=== PATIENT | male | born 1965 | race African-American/Black ===

== ENCOUNTER 2017-02-11 14:39 | Observation (INO) | payer MEDICARE, MEDICAID ==
[2017-02-11] MEDS ORDERED: Nitroglycerin 2% Ointment 1 INCH/1 GM Packet ONE (15:24)
[2017-02-11 15:36] LABS: #Eosinphils 0.2 thou/uL (0.0-0.7); #Lymphocytes 2.7 thou/uL (1.20-3.40); #Monocytes 0.6 thou/uL (0.11-0.59); #Neutrophils 4.5 thou/uL (1.40-6.50); %Basophils 0.3 % (0.0-1.0); %Eosinophils 2.8 % (0.0-10.0); %Lymphocytes 33.7 % (21.0-51.0); %Monocytes 7.4 % (0.0-10.0); Hematocrit 47.9 % (42.0-52.0); Mean Platelet Volume 8.4 fL (7.4-10.4); Red Blood Cell (RBC) Count 5.11 mill/uL (4.70-6.10); White Blood Cell (WBC) Count 8.1 thou/uL (4.8-10.8)
[2017-02-11 15:58] LABS: ALT (SGPT) 27 U/L (8-55); AST (SGOT) 15 U/L (5-34); Alkaline Phosphatase 89 U/L (40-150); Anion Gap 16 mmol/L (10-20); BUN (Urea Nitrogen) 13 mg/dL (8.4-25.7); Bilirubin, Total 0.4 mg/dL (0.2-1.2); CK (CPK) 425 U/L (30-200); Calc. Creatinine Clearance 0 mL/min (70-130); Calcium 9.1 mg/dL (7.8-10.44); Carbon Dioxide 23 mmol/L (22-29); Chloride 103 mmol/L (98-107); Estimated GFR-MDRD Greater than 90; Globulin 3.5 g/dL (2.4-3.5); Protein, Total 7.6 g/dL (6.0-8.3)
[2017-02-11 16:03] LABS: Troponin I Less than 0.010 ng/mL (< 0.028)
--- NOTE | 2017-02-11 16:32 | ULT ---
RENAL SONOGRAM: HISTORY: Flank pain. Stones. COMPARISON: 10/31/2015. FINDINGS: The right kidney is 16.2 cm in length on today's exam. The cyst at the superior pole is again demon strated. It is predominantly exophytic, measuring up to 6.2 cm in greatest diameter. No hydronephr osis is visible. Urinary bladder is unremarkable. The left kidney is 14.7 cm in length. A tiny hyperechoic focus centrally near the inferior pole is present. No hydronephrosis is apparent. IMPRESSION: 1. Right renal cyst, stable. 2. Small non-obstructing left renal calculus. POS: [facility]
--- NOTE | 2017-02-11 16:40 | RAD ---
CHEST ONE VIEW: HISTORY: Chest pain. COMPARISON: 10/01/2012. FINDINGS: Cardiac silhouette and pulmonary vasculature are unremarkable. Mediastinum is midline. There is no confluent air space consolidation or evidence of pneumothorax. newspaper manager leads overlie the chest. IMPRESSION: No active cardiopulmonary abnormalities are demonstrated. POS: [facility]
[2017-02-11 18:55] VITALS: BMI 28.5
[2017-02-11] MEDS ORDERED: Ondansetron HCl/PF 4 MG/2 ML Vial IVP PRN ×2 (18:58→20:19)
[2017-02-11] MEDS ORDERED: Acetaminophen 325 MG TAB PO PRN (18:58)
[2017-02-11] MEDS ORDERED: Ondansetron ODT 4 MG TAB SL PRN (18:58)
[2017-02-11 19:56] LABS: Troponin I Less than 0.010 ng/mL (< 0.028)
[2017-02-11] MEDS ORDERED: Dextrose 50% Abboject 50 ML SYRINGE SLOW IVP PRN (20:19)
[2017-02-11] MEDS ORDERED: Nitroglycerin 0.4 MG TAB (25 Tab Bottle) PO PRN (20:19)
[2017-02-11] MEDS ORDERED: Ondansetron ODT 4 MG TAB PO PRN (20:19)
[2017-02-11] MEDS ORDERED: hydrALAZINE 20 MG/ML VIAL SLOW IVP PRN (20:19)
[2017-02-11] MEDS ORDERED: Mag-Al 1200 mg/1200 mg/30 ML UDCUP PO PRN (20:19)
[2017-02-11] MEDS ORDERED: Dextrose 5% in Water 1,000 ML IV PRN (20:19)
[2017-02-11] MEDS ORDERED: Mometasone/Formoterol 120 PUFF INHALER INH PRN (20:19)
[2017-02-11] MEDS ORDERED: Zolpidem Tartrate 5 MG TAB PO PRN (20:19)
[2017-02-11] MEDS: Nitroglycerin 2% Ointment 1 INCH/1 GM Packet TOP SCH (21:07)
[2017-02-11] MEDS: Docusate 100 MG CAP PO SCH (21:07)
[2017-02-11] MEDS: HumaLOG 300 UNITS/3 ML VIAL SC PRN (21:10)
[2017-02-11] MEDS: Acetaminophen 325 MG TAB PO PRN (21:10)
[2017-02-11 21:25] LABS: Troponin I Less than 0.010 ng/mL (< 0.028)
--- NOTE | 2017-02-12 00:31 | HP ---
PRIMARY CARE PHYSICIAN: Dr. Manriquez. CHIEF COMPLAINT: Chest pain. HISTORY OF PRESENT ILLNESS: Mr. Stephen is a pleasant 51-year-old gentleman that has a history of hyp ertension as well as coronary artery disease. He was in his usual state of health until the last co uple of days when he says he has been having some sharp, but also heavy pains in his chest. He says they were relatively minor. He had noticed one time when he was driving and another time when he w as cooking, but what concerned him is that earlier today, he says that he woke up sweating \\\\"really bad\\\\" and he says also he could hardly breathe and this happened after he got up and took a shower . He says that some of his symptoms were reminiscent of when he had his first stent placed and for this reason, he got concerned. He also says that he missed his last cardiology appointment as well and the last time he saw Dr. Manriquez was about 3 months ago. He says he did have a cardiac cathete rization about 2 years ago. He says that there was a small blockage there that was not amenable to stenting and would have to be treated medically. REVIEW OF SYSTEMS: Constitutional: There have been no fevers, chills, no night sweats, no weight l oss. HEENT: No headaches, no dizziness, no visual changes, no sore throat, no rhinorrhea, neck yunier n, no adenopathy. Pulmonary: No hemoptysis, no cough, no wheezing. Cardiovascular: As the history of present illness with no PND, no orthopnea. No lower extremity ed leopoldo. Gastrointestinal: He denies any abdominal pain, no nausea, no vomiting, no change in bowels. Genitourinary: No urinary frequency, hematuria, no hesitancy. Neurologic: No focal weakness, num bness, no seizures. Psychiatric: No symptoms of anxiety or depression. Skin and Integument: No skin changes. No rash. PAST MEDICAL HISTORY: Significant for coronary artery disease, obstructive sleep apnea, hypertensio n, and elevated cholesterol. PAST SURGICAL HISTORY: He has had lumbar disk surgery, rotator cuff repair and right knee surgery, history of kidney stone surgery and 7 stents. ALLERGIES: No known drug allergies. FAMILY HISTORY: He says his brother suddenly in his 40s. He said he has several siblings, two brothers and a sister of heart disease. SOCIAL HISTORY: He is single. He is a smoker. He smokes about 1 pack of cigarettes a week for the past 30 years. He drinks socially. MEDICATIONS: He was not sure of the names and dosages. He says that they are what was recorded in the ER and this of course will need to be reconciled which included metformin 500 mg twice daily, as pirin 81 mg daily, hydrochlorothiazide 25 mg daily, Plavix 75 mg daily, Lantus Solostar 60 units crispin ly, Ambien 10 mg daily, Soma 350 mg daily. PHYSICAL EXAMINATION: GENERAL: He is alert and oriented. He appears to be in no acute distress. In fact, he was out of the room when I initially came to visit him. VITAL SIGNS: Blood pressure was 145/87, heart rate 68, respiratory rate is 16, temperature is 97.3. HEENT: Pupils are equal, round, and reactive. Extraocular muscles are intact. Sclerae are anicter ic. Throat no erythema, no exudates. NECK: No adenopathy, no bruits. LUNGS: Clear to auscultation. CARDIOVASCULAR: He has a normal S1, S2. I do not appreciate an S3 or S4. No murmurs, clicks or ru bs. ABDOMEN: Soft, nontender, nondistended. No rebound, no guarding. EXTREMITIES: No clubbing or cyanosis, no edema. NEUROLOGICALLY: The exam is nonfocal. SIGNIFICANT LABORATORY DATA AND IMAGING: EKG was sinus rhythm, the rate is 84. He had some T-wave inversion in V3 and some poor R-wave progression in V1 through V2. Sodium was 138, potassium 3.6, c hloride is 103, CO2 is 23, BUN of 13, creatinine 1.03, glucose is 304, creatinine kinase is 425. Tr oponin is less than 0.010. White blood cell count 8.1, hemoglobin 15.7, hematocrit is 47.9, platele ts 186. ASSESSMENT AND PLAN: This is a pleasant 51-year-old gentleman who is being placed in observation du e to chest pain. He has a history of coronary artery disease and continues to smoke and has other r isk factors including hypertension and diabetes. He also says that his symptoms are similar to when he had his stent placed. He will be ruled out, and we will get an exercise Cardiolite to further a ssess his risk for acute coronary syndrome. We will continue his medications for diabetes with the exception of metformin and place him on a sliding scale. He will also be on aspirin and nitrates an d restart his medications for blood pressure.
[2017-02-12 00:48] LABS: Troponin I Less than 0.010 ng/mL (< 0.028)
[2017-02-12] MEDS: Nitroglycerin 2% Ointment 1 INCH/1 GM Packet TOP SCH ×2 (05:02→13:55)
[2017-02-12] MEDS ORDERED: Regadenoson 0.4 MG/5 ML SYRINGE ONE (08:59)
[2017-02-12] MEDS ORDERED: Aspirin 325 MG TAB PO SCH (09:00)
[2017-02-12] MEDS ORDERED: FLU VACC QS2017-18 36 mo. & older 0.5 ML SYRINGE IM ONE (09:00)
[2017-02-12] MEDS ORDERED: Enoxaparin Sodium 40 MG/0.4 ML SYRINGE SC SCH (09:00)
[2017-02-12 12:04] VITALS: BP 156/92; TEMP 97.5
[2017-02-12] MEDS: HumaLOG 300 UNITS/3 ML VIAL SC PRN (12:29)
[2017-02-12] MEDS: Docusate 100 MG CAP PO SCH (13:14)
[2017-02-12] MEDS: Acetaminophen 325 MG TAB PO PRN (13:50)
--- NOTE | 2017-02-12 15:25 | NM ---
RADIONUCLIDE STRESS/REST MYOCARDIAL PERFUSION SCAN WITH CT ATTENUATION CORRECTION AND SPECT IMAGING WITH LEFT VENTRICULAR WALL MOTION EVALUATION AND EJECTION FRACTION: HISTORY: Chest pain. FINDINGS: Lexiscan protocol was used. There is heterogeneous uptake of radiotracer throughout the left ventric ular myocardium on both the stress and rest images. No focal perfusion defect or reversibility are a pparent. QGS analysis of gated SPECT images shows no focal wall motion abnormalities. Left ventricular ejecti on fraction is calculated at 58%. IMPRESSION: 1. Normal myocardial perfusion scan. 2. Normal LVEF. POS: [facility]
--- NOTE | 2017-02-12 16:33 | DIS ---
DATE OF ADMISSION: 02/11/2017 DATE OF DISCHARGE: 02/12/2017 PRIMARY CARE PHYSICIAN: CHIRAG Meyer DISCHARGE DISPOSITION: Home. PRIMARY DISCHARGE DIAGNOSES: 1. Chest pain, probable noncardiac. 2. History of coronary artery disease, status post multiple stent placements. 3. Hypertension. 4. Diabetes mellitus. 5. Nephrolithiasis. 6. Insomnia. DISCHARGE MEDICATIONS: Include tramadol 50 mg 1-2 every 6 hours as needed, metformin 500 mg twice d aily, Ambien 5 mg p.o. at bedtime p.r.n. or he can take zaleplon 10 mg at nighttime for sleep, Lantu s insulin 60 units twice daily, ibuprofen 800 mg q.6, hydrochlorothiazide 12.5 mg daily, Plavix 75 m g daily, Soma 350 mg q.i.d. as needed, Symbicort 160/4.5 one puff daily as directed, and aspirin 81 mg. PROCEDURES DONE DURING ADMISSION: The patient had a renal ultrasound. This showed a right renal cy st which was stable and a small nonobstructing of left renal calculus. The patient also had a nucle ar stress test or an exercise Cardiolite. There was no evidence of any reversible ischemia. The pa tiefaustino had a normal ejection fraction and no evidence of any wall motion disease or dysfunction and t he ejection fraction was estimated at 58%. CODE STATUS: FULL CODE. HOSPITAL COURSE: Mr. Stephen is a pleasant 51-year-old gentleman who was admitted after experiencing some chest pain. The description of which was somewhat atypical, but the patient stated that was ve ry similar to what he had when he had a history of coronary artery disease. He was placed in observ ation, he ruled out and stress test negative. He is being therefore discharged home to have early f [facility] with his primary care physician as well as his senior support engineer. He is to continue the same med ications and the patient is also on a statin medication, one of the new injected medicines which Makenzie taylor is Trapeze.
--- NOTE | 2017-02-17 10:10 | STRESS ---
Acquisition Time: 2017-02-12 10:15:08 Total Exercise Time: 00:01:00 Test Indications: CHEST PAIN Medications: Protocol: LEXISCAN Max HR: 109 BPM 64% of Pred: 169 BPM Max BP: 184/080 mmHG Max Work Load: 1.0 METS THE PATIENT WAS INJECTED WITH LEXISCAN. HE DID NOT DEVELOP CHEST PAIN. THERE WAS NO SIGNIFICANT ST DEPRESSION. AWAIT NUCLEAR IMAGES FOR DEFINITIVE DIAGNOSIS. Confirmed by JOSE LUIS SONG ([id number]), marketing editor KALEY QUINN ([id number] on 02/17/2017 10:10:05 AM Referred By: MD Matt ASHBY Confirmed By:JOSE LUIS SONG
--- NOTE | 2017-02-20 16:42 | EKG ---
Test Reason : Blood Pressure : / mmHG Vent. Rate : 084 BPM Atrial Rate : 084 BPM P-R Int : 170 ms QRS Dur : 096 ms QT Int : 372 ms P-R-T Axes : 061 045 011 degrees QTc Int : 439 ms Normal sinus rhythm Minimal voltage criteria for LVH, may be normal variant Septal infarct , age undetermined No STEMI Abnormal ECG Confirmed by CHRISTOS SHEN, FATUMA ([id number]), avid editor BASIM RAMIREZ ([id number]) on 02/20/2017 4:41:59 PM Referred By: Confirmed By:FATUMA SHER MD
== END 2017-02-12 15:58 | disposition home or self-care (01) ==
LOC: ERS 14:39 → 2SW 17:29
PROVIDERS: ADMIT Internal Medicine; ATTEND Internal Medicine
DX: R07.9 Chest pain, unspecified (principal); I25.10 Atherosclerotic heart disease of native coronary artery without angina pectoris; I10 Essential (primary) hypertension; E11.9 Type 2 diabetes mellitus without complications; N20.0 Calculus of kidney; G47.00 Insomnia, unspecified; N28.1 Cyst of kidney, acquired; G47.33 Obstructive sleep apnea (adult) (pediatric); E78.00 Pure hypercholesterolemia, unspecified; F17.210 Nicotine dependence, cigarettes, uncomplicated; Z79.4 Long term (current) use of insulin; Z79.02 Long term (current) use of antithrombotics/antiplatelets; Z79.82 Long term (current) use of aspirin; Z79.899 Other long term (current) drug therapy; Z98.890 Other specified postprocedural states; Z87.442 Personal history of urinary calculi
CPT/HCPCS: 71010; 76770; 78452; 80053; 80061; 82550; 82553; 82962 ×2; 84484 ×3; 85025; 93005; 93017; 94760 ×2; 96372; 99285; 99406; A9500; G0008; G0378; Q2036; 36415; 36416; 90471; 90682; A4216; J1650; J2785

== ENCOUNTER 2017-04-12 12:35 | Emergency (ER) | payer MEDICARE, MEDICAID ==
[2017-04-12] MEDS ORDERED: Ketorolac Tromethamine 30 MG/ML VIAL ONE (14:04)
== END 2017-04-12 14:25 | disposition home or self-care (01) ==
LOC: ERS 12:35
DX: S33.5XXA Sprain of ligaments of lumbar spine, initial encounter (principal); I25.10 Atherosclerotic heart disease of native coronary artery without angina pectoris; E11.9 Type 2 diabetes mellitus without complications; E78.5 Hyperlipidemia, unspecified; I10 Essential (primary) hypertension; F17.210 Nicotine dependence, cigarettes, uncomplicated; Z79.82 Long term (current) use of aspirin; Z79.02 Long term (current) use of antithrombotics/antiplatelets; Z79.899 Other long term (current) drug therapy; Z79.4 Long term (current) use of insulin; X50.0XXA Overexertion from strenuous movement or load, initial encounter; Y99.0 Civilian activity done for income or pay
CPT/HCPCS: 96372; 99406; J1885

== ENCOUNTER 2018-04-23 09:42 | Emergency (ER) | payer MEDICARE, MEDICAID | END 2018-04-23 10:28 | disposition home or self-care (01) | LOC: ERS 09:42 | DX: K03.81 Cracked tooth (principal); K04.7 Periapical abscess without sinus; I25.10 Atherosclerotic heart disease of native coronary artery without angina pectoris; E11.9 Type 2 diabetes mellitus without complications; E78.5 Hyperlipidemia, unspecified; F17.210 Nicotine dependence, cigarettes, uncomplicated; Z79.82 Long term (current) use of aspirin; Z79.899 Other long term (current) drug therapy; Z79.4 Long term (current) use of insulin | CPT/HCPCS: 99282 ==

== ENCOUNTER 2018-07-13 09:27 | Emergency (ER) | payer MEDICARE, MEDICAID | END 2018-07-13 10:49 | disposition home or self-care (01) | LOC: ERS 09:27 | DX: J06.9 Acute upper respiratory infection, unspecified (principal); I25.10 Atherosclerotic heart disease of native coronary artery without angina pectoris; E11.9 Type 2 diabetes mellitus without complications; E78.5 Hyperlipidemia, unspecified; F17.210 Nicotine dependence, cigarettes, uncomplicated; Z79.82 Long term (current) use of aspirin; Z79.84 Long term (current) use of oral hypoglycemic drugs; Z79.899 Other long term (current) drug therapy | CPT/HCPCS: 99283 ==

== ENCOUNTER 2019-06-11 05:28 | Emergency (ER) | payer MEDICARE, MEDICAID ==
[2019-06-11] MEDS ORDERED: Metoclopramide HCl 10 MG/2 ML VIAL ONE (06:28)
[2019-06-11] MEDS ORDERED: Ketorolac Tromethamine 30 MG/ML VIAL ONE (06:28)
[2019-06-11] MEDS ORDERED: diphenhydrAMINE 50 MG/ML VIAL ONE (06:28)
[2019-06-11 06:32] LABS: #Eosinphils 0.3 thou/uL (0.0-0.7); #Lymphocytes 2.8 thou/uL (1.20-3.40); #Monocytes 0.9 thou/uL (0.11-0.59); #Neutrophils 5.3 thou/uL (1.40-6.50); %Basophils 0.4 % (0.0-1.0); %Lymphocytes 29.9 % (21.0-51.0); %Monocytes 9.3 % (0.0-10.0); %Neutrophils 57.4 % (42.0-75.0); Hemoglobin 15.9 g/dL (14.0-18.0); Mean Corpuscular HGB CONC 34.7 g/dL (32.0-36.0); Mean Corpuscular Hemoglobin 32.1 pg (27.0-31.0); Mean Corpuscular Volume 92.7 fL (78.0-98.0); Platelet Count 197 thou/uL (130-400); Red Blood Cell (RBC) Count 4.94 mill/uL (4.70-6.10); White Blood Cell (WBC) Count 9.3 thou/uL (4.8-10.8)
== END 2019-06-11 07:29 | disposition home or self-care (01) ==
LOC: ERS 05:28
DX: R51 Headache (principal); F17.210 Nicotine dependence, cigarettes, uncomplicated; E78.5 Hyperlipidemia, unspecified; I25.10 Atherosclerotic heart disease of native coronary artery without angina pectoris; E78.00 Pure hypercholesterolemia, unspecified; I10 Essential (primary) hypertension; E11.9 Type 2 diabetes mellitus without complications; Z79.4 Long term (current) use of insulin; Z79.82 Long term (current) use of aspirin; Z79.899 Other long term (current) drug therapy
CPT/HCPCS: 85025; 85652; 86140; 96365; 96375; J1200; J1885; J2765

== ENCOUNTER 2019-09-12 06:28 | Outpatient (CLI) | payer MEDICARE, MEDICAID, OTHER ==
[2019-09-12 10:48] LABS: #Eosinphils 0.3 thou/uL (0.0-0.7); #Lymphocytes 2.8 thou/uL (1.20-3.40); #Monocytes 0.9 thou/uL (0.11-0.59); #Neutrophils 4.7 thou/uL (1.40-6.50); %Basophils 0.4 % (0.0-1.0); %Eosinophils 3.3 % (0.0-10.0); %Lymphocytes 32.6 % (21.0-51.0); %Neutrophils 53.6 % (42.0-75.0); Mean Corpuscular HGB CONC 34.5 g/dL (32.0-36.0); Mean Corpuscular Hemoglobin 32.3 pg (27.0-31.0); Mean Corpuscular Volume 93.8 fL (78.0-98.0); Mean Platelet Volume 9.2 fL (7.4-10.4); Platelet Count 177 thou/uL (130-400); Red Blood Cell (RBC) Count 4.93 mill/uL (4.70-6.10); White Blood Cell (WBC) Count 8.7 thou/uL (4.8-10.8)
[2019-09-12 11:14] LABS: ALT (SGPT) 34 U/L (8-55); AST (SGOT) 19 U/L (5-34); Albumin 4.2 g/dL (3.5-5.0); Alkaline Phosphatase 81 U/L (40-110); Anion Gap 12 mmol/L (10-20); BUN (Urea Nitrogen) 16 mg/dL (8.4-25.7); Bilirubin, Total 0.5 mg/dL (0.2-1.2); Calc. Creatinine Clearance 0 mL/min (70-130); Calcium 9.2 mg/dL (7.8-10.44); Carbon Dioxide 24 mmol/L (22-29); Chloride 104 mmol/L (98-107); Estimated GFR-MDRD Greater than 90; Globulin 3.2 g/dL (2.4-3.5); Glucose 268 mg/dL (70-105); Potassium 3.9 mmol/L (3.5-5.1); Protein, Total 7.4 g/dL (6.0-8.3); Sodium 136 mmol/L (136-145)
[2019-09-12 18:40] LABS: SARS-CoV-2 MS2 Positive; SARS-CoV-2 N Gene Negative; SARS-CoV-2 S Gene Negative; SARS-CoV-2 orf1ab Negative
== END 2019-09-12 06:29 | disposition home or self-care (01) ==
LOC: LABBT 06:28
PROVIDERS: ATTEND Internal Medicine Cardiovascular Disease
DX: Z01.812 Encounter for preprocedural laboratory examination (principal); Z11.59 Encounter for screening for other viral diseases; I20.9 Angina pectoris, unspecified
CPT/HCPCS: 80053; 85025; U0003; 87635

== ENCOUNTER 2019-09-15 06:20 | Day surgery (SDC) | payer MEDICARE, MEDICAID ==
[2019-09-12 08:26] VITALS: BMI 29.8
[2019-09-15] MEDS ORDERED: Fentanyl 100 MCG/2 ML VIAL ONE (08:33)
[2019-09-15] MEDS ORDERED: Midazolam HCl 2 mg/2 ml Vial ONE (08:33)
[2019-09-15] MEDS ORDERED: Heparin 10,000 UNITS/1 ML VIAL ONE (08:50)
[2019-09-15] MEDS ORDERED: Clopidogrel Bisulfate 300 MG TAB ONE (09:05)
[2019-09-15] MEDS ORDERED: Nitroglycerin 100MG/250ML BOT 250 ML ONE (09:05)
[2019-09-15] MEDS ORDERED: Iopamidol 370 76% 50 ML VIAL FS ONE (09:56)
[2019-09-15] MEDS ORDERED: Iopamidol 370 76% 100 ML VIAL ONE (09:56)
[2019-09-15] MEDS ORDERED: Acetaminophen/Codeine 30-300mg Tablet ONE (11:43)
== END 2019-09-15 15:55 | disposition home or self-care (01) ==
LOC: CCL 06:20
PROVIDERS: ATTEND Internal Medicine Cardiovascular Disease
PROC: 027136Z Dilation of Coronary Artery, Two Arteries with Three Drug-eluting Intraluminal Devices, Percutaneous Approach (ICD-10-PCS; principal; 2019-09-15)
PROC: 4A023N7 Measurement of Cardiac Sampling and Pressure, Left Heart, Percutaneous Approach (ICD-10-PCS; 2019-09-15)
PROC: B2111ZZ Fluoroscopy of Multiple Coronary Arteries using Low Osmolar Contrast (ICD-10-PCS; 2019-09-15)
DX: I25.119 Atherosclerotic heart disease of native coronary artery with unspecified angina pectoris (principal); E11.9 Type 2 diabetes mellitus without complications; E78.2 Mixed hyperlipidemia; F17.210 Nicotine dependence, cigarettes, uncomplicated; I10 Essential (primary) hypertension; E78.00 Pure hypercholesterolemia, unspecified; E66.9 Obesity, unspecified; Z68.29 Body mass index [BMI] 29.0-29.9, adult; Z79.02 Long term (current) use of antithrombotics/antiplatelets; Z79.4 Long term (current) use of insulin; Z79.82 Long term (current) use of aspirin; Z79.899 Other long term (current) drug therapy; Z91.19 Patient's noncompliance with other medical treatment and regimen
CPT/HCPCS: 85347; 92928; 92929; 93005; 93010; 93454; 99152; 99153; C1874; C9600; C9601; J1644; J2250; J3010; Q9967

== ENCOUNTER 2021-04-10 17:04 | Emergency (ER) | payer MEDICARE ==
[2021-04-10 18:04] LABS: #Basophils 0.1 thou/uL (0.0-0.2); #Eosinphils 0.3 thou/uL (0.0-0.7); #Lymphocytes 3.9 thou/uL (1.20-3.40); #Monocytes 0.7 thou/uL (0.11-0.59); #Neutrophils 5.7 thou/uL (1.40-6.50); %Basophils 0.7 % (0.0-1.0); %Eosinophils 3.1 % (0.0-10.0); %Lymphocytes 36.6 % (21.0-51.0); %Monocytes 6.2 % (0.0-10.0); %Neutrophils 53.4 % (42.0-75.0); Hemoglobin 15.2 g/dL (14.0-18.0); Mean Corpuscular HGB CONC 35.1 g/dL (32.0-36.0); Mean Corpuscular Hemoglobin 32.3 pg (27.0-31.0); Mean Corpuscular Volume 91.9 fL (78.0-98.0); Mean Platelet Volume 7.8 fL (7.4-10.4); Platelet Count 249 thou/uL (130-400); RBC Distribution Width 11.3 % (11.5-14.5); Red Blood Cell (RBC) Count 4.69 mill/uL (4.70-6.10); White Blood Cell (WBC) Count 10.7 thou/uL (4.8-10.8)
[2021-04-10 18:20] LABS: Bilirubin Negative (Negative); Blood, Urine Negative (Negative); Clarity Clear (Clear); Glucose, Urine (Dipstick) Greater than 1000 mg/dL (Negative); Ketone, Urine Negative (Negative); Leukocyte Negative Leu/uL (Negative); Nitrite Negative (Negative); Protein, Urine (Dipstick) 20 mg/dL (Neg-Trace); Specific Gravity, Urine 1.032 (1.002-1.036); Urobilinogen Normal mg/dL (Less than 2); pH, Urine 6.5 (5.0-9.0)
[2021-04-10 18:23] LABS: ALT (SGPT) 24 U/L (8-55); AST (SGOT) 16 U/L (5-34); Albumin 4.2 g/dL (3.5-5.0); Alkaline Phosphatase 83 U/L (40-110); Anion Gap 13 mmol/L (10-20); BUN (Urea Nitrogen) 15 mg/dL (8.4-25.7); Bilirubin, Total 0.4 mg/dL (0.2-1.2); Calc. Creatinine Clearance 0 mL/min (70-130); Calcium 9.7 mg/dL (7.8-10.44); Carbon Dioxide 25 mmol/L (22-29); Chloride 100 mmol/L (98-107); Globulin 3.7 g/dL (2.4-3.5); Glucose 268 mg/dL (70-105); Potassium 3.8 mmol/L (3.5-5.1); Protein, Total 7.9 g/dL (6.0-8.3); Sodium 134 mmol/L (136-145)
[2021-04-10] MEDS ORDERED: Morphine 4 MG/ML VIAL ONE (18:55)
[2021-04-10] MEDS ORDERED: Ondansetron PF 4 MG/2 ML Vial ONE (18:56)
[2021-04-10] MEDS ORDERED: Ketorolac Tromethamine 30 MG/ML VIAL ONE (18:56)
[2021-04-10] MEDS ORDERED: HYDROcodone/Acetaminophen 5/325 mg Tablet ONE (20:04)
== END 2021-04-10 20:18 | disposition home or self-care (01) ==
LOC: ERS 17:04
DX: R10.31 Right lower quadrant pain (principal); I25.10 Atherosclerotic heart disease of native coronary artery without angina pectoris; E11.9 Type 2 diabetes mellitus without complications; E78.5 Hyperlipidemia, unspecified; E78.00 Pure hypercholesterolemia, unspecified; I10 Essential (primary) hypertension; F17.210 Nicotine dependence, cigarettes, uncomplicated; Z79.82 Long term (current) use of aspirin; Z79.02 Long term (current) use of antithrombotics/antiplatelets; Z79.899 Other long term (current) drug therapy
CPT/HCPCS: 74176; 80053; 81003; 83690; 85025; 87086; 96374; 96375; J1885; J2270; J2405

== ENCOUNTER 2021-04-12 20:17 | Emergency (ER) | payer MEDICARE ==
[2021-04-12 21:46] LABS: #Lymphocytes 2.6 thou/uL (1.20-3.40); #Monocytes 0.9 thou/uL (0.11-0.59); #Neutrophils 12.4 thou/uL (1.40-6.50); %Basophils 0.1 % (0.0-1.0); %Eosinophils 0.2 % (0.0-10.0); %Lymphocytes 16.2 % (21.0-51.0); %Monocytes 5.4 % (0.0-10.0); %Neutrophils 78.1 % (42.0-75.0); Hemoglobin 15.7 g/dL (14.0-18.0); Mean Corpuscular HGB CONC 35.6 g/dL (32.0-36.0); Mean Corpuscular Hemoglobin 32.6 pg (27.0-31.0); Mean Corpuscular Volume 91.6 fL (78.0-98.0); Platelet Count 279 thou/uL (130-400); RBC Distribution Width 11.5 % (11.5-14.5); Red Blood Cell (RBC) Count 4.83 mill/uL (4.70-6.10); White Blood Cell (WBC) Count 15.8 thou/uL (4.8-10.8)
[2021-04-12 22:09] LABS: ALT (SGPT) 23 U/L (8-55); AST (SGOT) 15 U/L (5-34); Albumin 4.3 g/dL (3.5-5.0); Alkaline Phosphatase 84 U/L (40-110); Anion Gap 15 mmol/L (10-20); BUN (Urea Nitrogen) 21 mg/dL (8.4-25.7); Bilirubin, Total 0.5 mg/dL (0.2-1.2); Calc. Creatinine Clearance 0 mL/min (70-130); Calcium 10.1 mg/dL (7.8-10.44); Carbon Dioxide 20 mmol/L (22-29); Chloride 101 mmol/L (98-107); Globulin 3.7 g/dL (2.4-3.5); Glucose 329 mg/dL (70-105); Potassium 4.1 mmol/L (3.5-5.1); Sodium 132 mmol/L (136-145)
[2021-04-12] MEDS ORDERED: Morphine 4 MG/ML VIAL ONE (22:56)
[2021-04-12] MEDS ORDERED: Ketorolac Tromethamine 30 MG/ML VIAL ONE (22:56)
[2021-04-12 23:48] LABS: Bilirubin Negative (Negative); Blood, Urine Negative (Negative); Clarity Clear (Clear); Glucose, Urine (Dipstick) Greater than 1000 mg/dL (Negative); Ketone, Urine 40 mg/dL (Negative); Leukocyte Negative Leu/uL (Negative); Nitrite Negative (Negative); Protein, Urine (Dipstick) 20 mg/dL (Neg-Trace); Specific Gravity, Urine 1.039 (1.002-1.036); pH, Urine 6.5 (5.0-9.0)
== END 2021-04-12 23:33 | disposition home or self-care (01) ==
LOC: ERS 20:17
DX: M54.41 Lumbago with sciatica, right side (principal); E11.65 Type 2 diabetes mellitus with hyperglycemia; I10 Essential (primary) hypertension; I25.10 Atherosclerotic heart disease of native coronary artery without angina pectoris; E78.5 Hyperlipidemia, unspecified; E78.00 Pure hypercholesterolemia, unspecified; F17.210 Nicotine dependence, cigarettes, uncomplicated; Z79.02 Long term (current) use of antithrombotics/antiplatelets; Z79.82 Long term (current) use of aspirin; Z79.4 Long term (current) use of insulin; Z79.899 Other long term (current) drug therapy
CPT/HCPCS: 36415; 80053; 81003; 85025; 85652; 86141; 96372; J1885; J2270

== ENCOUNTER 2021-04-14 04:43 | Emergency (ER) | payer MEDICARE ==
[2021-04-14] MEDS ORDERED: Ketorolac Tromethamine 30 MG/ML VIAL ONE (05:57)
== END 2021-04-14 06:32 | disposition home or self-care (01) ==
LOC: ERS 04:43
DX: M54.41 Lumbago with sciatica, right side (principal); I10 Essential (primary) hypertension; I25.10 Atherosclerotic heart disease of native coronary artery without angina pectoris; E11.9 Type 2 diabetes mellitus without complications; E78.5 Hyperlipidemia, unspecified; E78.00 Pure hypercholesterolemia, unspecified; F17.210 Nicotine dependence, cigarettes, uncomplicated
CPT/HCPCS: 96372; 99283; J1885

== ENCOUNTER 2022-03-31 08:20 | Emergency (ER) | payer OTHER ==
[2022-03-31] MEDS ORDERED: Ketorolac Tromethamine 30 MG/ML VIAL ONE (08:45)
[2022-03-31] MEDS ORDERED: Dexamethasone 10 MG/ML VIAL ONE (08:45)
[2022-03-31] MEDS ORDERED: Fentanyl 100 MCG/2 ML VIAL ONE (08:45)
== END 2022-03-31 09:22 | disposition home or self-care (01) ==
LOC: ERS 08:20
DX: M19.90 Unspecified osteoarthritis, unspecified site (principal); I25.10 Atherosclerotic heart disease of native coronary artery without angina pectoris; E11.9 Type 2 diabetes mellitus without complications; E78.00 Pure hypercholesterolemia, unspecified; I10 Essential (primary) hypertension; F17.210 Nicotine dependence, cigarettes, uncomplicated; Z79.899 Other long term (current) drug therapy; Z79.82 Long term (current) use of aspirin
CPT/HCPCS: 96372; 99283; J1100; J1885; J3010

== ENCOUNTER 2022-05-02 07:40 | Emergency (ER) | payer OTHER ==
[2022-05-02] MEDS ORDERED: Acetaminophen/Codeine 30-300mg Tablet ONE (09:59)
[2022-05-02] MEDS ORDERED: Ketorolac Tromethamine 30 MG/ML VIAL ONE (09:59)
== END 2022-05-02 11:28 | disposition home or self-care (01) ==
LOC: ERS 07:40
DX: M25.511 Pain in right shoulder (principal); E11.9 Type 2 diabetes mellitus without complications; E78.00 Pure hypercholesterolemia, unspecified; I10 Essential (primary) hypertension; F17.210 Nicotine dependence, cigarettes, uncomplicated; Z79.82 Long term (current) use of aspirin; Z79.4 Long term (current) use of insulin
CPT/HCPCS: 96372; J1885

== ENCOUNTER 2022-05-23 12:51 | Inpatient (IN) | payer OTHER, MEDICAID ==
[2022-05-23] MEDS ORDERED: Morphine 4 MG/ML VIAL ONE (13:17)
[2022-05-23] MEDS ORDERED: Acetaminophen 500 MG TAB ONE (13:18)
[2022-05-23 14:02] LABS: Hemoglobin 12.6 g/dL (14.0-18.0); Mean Corpuscular HGB CONC 34.6 g/dL (32.0-36.0); Mean Corpuscular Hemoglobin 31.2 pg (27.0-31.0); Mean Corpuscular Volume 90.3 fl (78.0-98.0); Mean Platelet Volume 6.7 fL (7.4-10.4); Platelet Count 684 10x3/uL (130-400); RBC Distribution Width 11.9 % (11.5-14.5); Red Blood Cell (RBC) Count 4.03 mill/uL (4.70-6.10); White Blood Cell (WBC) Count 20.5 10x3/uL (4.8-10.8)
[2022-05-23 14:07] LABS: ALT (SGPT) 7 U/L (8-55); AST (SGOT) 9 U/L (5-34); Albumin 3.7 g/dL (3.5-5.0); Alkaline Phosphatase 86 U/L (40-110); Anion Gap 17 mmol/L (10-20); BUN (Urea Nitrogen) 10 mg/dL (8.4-25.7); Bilirubin, Total 0.7 mg/dL (0.2-1.2); Calc. Creatinine Clearance 0 mL/min (70-130); Calcium 10.1 mg/dL (7.8-10.44); Carbon Dioxide 22 mmol/L (22-29); Chloride 98 mmol/L (98-107); Estimated GFR 101; Globulin 5.5 g/dL (2.4-3.5); Glucose 246 mg/dL (70-105); Potassium 3.7 mmol/L (3.5-5.1); Protein, Total 9.2 g/dL (6.0-8.3); Sodium 133 mmol/L (136-145)
[2022-05-23 14:21] LABS: Lymphocytes 19 % (21-51); MDiff Complete? YES; Monocytes 10 % (0-10); Neutrophil 70 % (42-75); Platelet Morphology Comment Appears Increased; Polychromasia SLIGHT = 2-3 cells (100X) (0-2/hpf); Reactive Lymphocytes 1 % (0-10)
[2022-05-23] MEDS ORDERED: cefTRIAXone\\ROCEPHIN 2 GM VIAL ONE (14:26)
[2022-05-23] MEDS ORDERED: Ondansetron ODT 4 MG TAB PO PRN (15:41)
[2022-05-23] MEDS ORDERED: Acetaminophen 325 MG TAB PO PRN ×2 (15:41→19:14)
[2022-05-23 17:43] VITALS: BMI 25.0
[2022-05-23] MEDS ORDERED: Dextrose 5% in Water 1,000 ML IV PRN (18:16)
[2022-05-23] MEDS ORDERED: Dextrose 50% Abboject 50 ML SYRINGE SLOW IVP PRN (18:16)
[2022-05-23] MEDS ORDERED: Sodium Chloride 0.9% 1,000 ML IV SCH (18:30)
[2022-05-23] MEDS: HYDROcodone/Acetaminophen 10/325 mg Tablet PO PRN (18:55)
[2022-05-23] MEDS ORDERED: Ibuprofen 800 MG TAB PO PRN (19:13)
[2022-05-23] MEDS: Famotidine 20 MG TAB PO SCH (20:57)
[2022-05-23] MEDS: Atorvastatin Calcium 10 MG TAB PO SCH (21:01)
[2022-05-23] MEDS: Morphine 2 MG/ML VIAL SLOW IVP PRN (22:33)
[2022-05-23] MEDS: HumaLOG 300 UNITS/3 ML VIAL SC PRN (22:34)
[2022-05-24] MEDS: HYDROcodone/Acetaminophen 10/325 mg Tablet PO PRN ×3 (05:11→19:57)
[2022-05-24 07:13] LABS: #Eosinphils 0.1 thou/uL (0.0-0.7); #Lymphocytes 2.5 thou/uL (1.20-3.40); #Monocytes 1.6 thou/uL (0.11-0.59); #Neutrophils 10.3 thou/uL (1.40-6.50); %Basophils 0.1 % (0.0-1.0); %Eosinophils 0.5 % (0.0-10.0); %Lymphocytes 17.2 % (21.0-51.0); %Monocytes 11.1 % (0.0-10.0); %Neutrophils 71.1 % (42.0-75.0); Mean Corpuscular HGB CONC 33.6 g/dL (32.0-36.0); Mean Corpuscular Hemoglobin 30.6 pg (27.0-31.0); Mean Platelet Volume 6.6 fL (7.4-10.4); Platelet Count 585 10x3/uL (130-400); RBC Distribution Width 11.9 % (11.5-14.5); Red Blood Cell (RBC) Count 3.59 mill/uL (4.70-6.10); White Blood Cell (WBC) Count 14.5 10x3/uL (4.8-10.8)
[2022-05-24 07:31] LABS: Anion Gap 12 mmol/L (10-20); BUN (Urea Nitrogen) 9 mg/dL (8.4-25.7); Calc. Creatinine Clearance 132 mL/min (70-130); Calcium 9.1 mg/dL (7.8-10.44); Carbon Dioxide 24 mmol/L (22-29); Chloride 101 mmol/L (98-107); Estimated GFR 108; Glucose 186 mg/dL (70-105); Potassium 3.5 mmol/L (3.5-5.1); Sodium 133 mmol/L (136-145)
[2022-05-24] MEDS ORDERED: Amlodipine 10 MG TAB PO SCH (09:00)
[2022-05-24] MEDS: Aspirin Chewable 81 MG TAB PO SCH (09:35)
[2022-05-24] MEDS: Valsartan 80 MG TAB PO SCH ×2 (09:35→11:14)
[2022-05-24] MEDS: Famotidine 20 MG TAB PO SCH ×2 (09:35→19:59)
[2022-05-24] MEDS: Amlodipine 10 MG TAB PO SCH (09:35)
[2022-05-24] MEDS: HumaLOG 300 UNITS/3 ML VIAL SC PRN (13:00)
[2022-05-24] MEDS: cefTRIAXone\\ROCEPHIN 2 GM in Sodium Chloride 0.9% 100 ML IVPB SCH (13:00)
[2022-05-24 17:27] LABS: Bacteria/HPF None Seen HPF (None Seen); Bilirubin Negative (Negative); Blood, Urine Negative (Negative); CAUTI Indications for Culture Fever or rigors; Clarity Clear (Clear); Glucose, Urine (Dipstick) 30 mg/dL (Negative); Ketone, Urine Negative (Negative); Leukocyte Negative Leu/uL (Negative); Nitrite Negative (Negative); Protein, Urine (Dipstick) 20 mg/dL (Neg-Trace); RBC/HPF 0-3 HPF (0-3); Specific Gravity, Urine 1.024 (1.002-1.036); Squamous Epithelial 0-3 HPF (0-3); WBC/HPF 0-3 HPF (0-3)
[2022-05-24 17:30] LABS: Urine Culture Reflex No No
[2022-05-24] MEDS: Insulin Glargine 30 UNITS/0.3 ML VIAL SC SCH (19:58)
[2022-05-24] MEDS: Atorvastatin Calcium 10 MG TAB PO SCH (20:00)
[2022-05-24] MEDS: Gabapentin 300 MG CAP PO SCH (20:00)
[2022-05-24] MEDS: Zolpidem Tartrate 5 MG TAB PO SCH (20:00)
[2022-05-25 05:32] LABS: #Eosinphils 0.1 thou/uL (0.0-0.7); #Lymphocytes 2.6 thou/uL (1.20-3.40); #Monocytes 1.6 thou/uL (0.11-0.59); #Neutrophils 9.1 thou/uL (1.40-6.50); %Basophils 0.2 % (0.0-1.0); %Eosinophils 0.9 % (0.0-10.0); %Lymphocytes 19.6 % (21.0-51.0); %Monocytes 11.6 % (0.0-10.0); %Neutrophils 67.8 % (42.0-75.0); Hemoglobin 11.2 g/dL (14.0-18.0); Mean Corpuscular HGB CONC 33.5 g/dL (32.0-36.0); Mean Corpuscular Hemoglobin 30.5 pg (27.0-31.0); Mean Corpuscular Volume 91.2 fl (78.0-98.0); Mean Platelet Volume 6.4 fL (7.4-10.4); Platelet Count 609 10x3/uL (130-400); RBC Distribution Width 11.7 % (11.5-14.5); Red Blood Cell (RBC) Count 3.66 mill/uL (4.70-6.10); White Blood Cell (WBC) Count 13.4 10x3/uL (4.8-10.8)
[2022-05-25 05:51] LABS: Anion Gap 14 mmol/L (10-20); BUN (Urea Nitrogen) 12 mg/dL (8.4-25.7); Calc. Creatinine Clearance 134 mL/min (70-130); Calcium 9.5 mg/dL (7.8-10.44); Carbon Dioxide 24 mmol/L (22-29); Chloride 99 mmol/L (98-107); Estimated GFR 108; Glucose 120 mg/dL (70-105); Potassium 3.5 mmol/L (3.5-5.1); Sodium 133 mmol/L (136-145)
[2022-05-25] MEDS: HYDROcodone/Acetaminophen 10/325 mg Tablet PO PRN ×3 (06:01→20:26)
[2022-05-25] MEDS: Famotidine 20 MG TAB PO SCH ×2 (08:17→20:26)
[2022-05-25] MEDS: Aspirin Chewable 81 MG TAB PO SCH (08:17)
[2022-05-25] MEDS: Clopidogrel Bisulfate 75 MG TAB PO SCH (08:18)
[2022-05-25] MEDS: Amlodipine 10 MG TAB PO SCH (08:18)
[2022-05-25] MEDS: Gabapentin 300 MG CAP PO SCH ×2 (08:18→20:27)
[2022-05-25] MEDS: Valsartan 80 MG TAB PO SCH (08:19)
[2022-05-25] MEDS: Insulin Glargine 30 UNITS/0.3 ML VIAL SC SCH ×2 (08:19→20:27)
[2022-05-25] MEDS: Morphine 2 MG/ML VIAL SLOW IVP PRN ×2 (08:20→15:10)
[2022-05-25] MEDS ORDERED: Ibuprofen 600 MG TAB PO PRN (13:31)
[2022-05-25 14:59] LABS: HIV (1/2) Antibody/Antigen Non-Reactive (NonReactive); HIV 1/2 INDEX 0.19 S/CO (<1.00)
[2022-05-25] MEDS: cefTRIAXone\\ROCEPHIN 2 GM in Sodium Chloride 0.9% 100 ML IVPB SCH (15:10)
[2022-05-25] MEDS: Atorvastatin Calcium 10 MG TAB PO SCH (20:26)
[2022-05-25] MEDS: Zolpidem Tartrate 5 MG TAB PO SCH (20:26)
[2022-05-25] MEDS: HumaLOG 300 UNITS/3 ML VIAL SC PRN (20:28)
[2022-05-26] MEDS: HYDROcodone/Acetaminophen 10/325 mg Tablet PO PRN (05:00)
[2022-05-26] MEDS: HumaLOG 300 UNITS/3 ML VIAL SC PRN (05:38)
[2022-05-26] MEDS: Insulin Glargine 30 UNITS/0.3 ML VIAL SC SCH (09:12)
[2022-05-26] MEDS: Aspirin Chewable 81 MG TAB PO SCH (09:12)
[2022-05-26] MEDS: Famotidine 20 MG TAB PO SCH (09:12)
[2022-05-26] MEDS: Clopidogrel Bisulfate 75 MG TAB PO SCH (09:12)
[2022-05-26] MEDS: Amlodipine 10 MG TAB PO SCH (09:12)
[2022-05-26] MEDS: Gabapentin 300 MG CAP PO SCH (09:12)
[2022-05-26] MEDS: Valsartan 80 MG TAB PO SCH (09:13)
[2022-05-26] MEDS: Morphine 2 MG/ML VIAL SLOW IVP PRN (09:17)
[2022-05-26 11:52] LABS: ANA Symphony (Qualitative) Negative (Negative); ANA Symphony (Quantitative) 0.6 Ratio (< 0.7 Negative); dsDNA IgG Antibody 3.1 IU/mL (<10 Negative)
[2022-05-26 12:05] VITALS: BP 135/79; TEMP 98.4
[2022-05-26 13:00] LABS: CCP IgG Antibody 2.6 EliAU/mL (<7 Negative); Rheumatoid Factor IgA Antibody 3.7 IU/mL (<14 Negative); Rheumatoid Factor IgM Antibody Less than 0.6 IU/mL (<3.5 Negative)
[2022-05-28 19:38] LABS: Cytoplasmic (C-ANCA) <1:20 titer (Neg:<1:20); Myeloperoxidase AutoAbs <0.2 units (0.0-0.9); Perinuclear (P-ANCA) <1:20 titer (Neg:<1:20); Proteinase-3 AutoAbs Less than 0.2 units (0.0-0.9)
== END 2022-05-26 12:43 | disposition home or self-care (01) | DRG 563 ==
LOC: ERS 12:51 → T4-B 15:44 → OBSVTOIN 05-25 13:31
PROVIDERS: ADMIT Family Medicine; ATTEND Hospitalist
DX: S43.431A Superior glenoid labrum lesion of right shoulder, initial encounter (principal); M10.9 Gout, unspecified; M75.01 Adhesive capsulitis of right shoulder; M75.51 Bursitis of right shoulder; S46.211A Strain of muscle, fascia and tendon of other parts of biceps, right arm, initial encounter; I10 Essential (primary) hypertension; E78.5 Hyperlipidemia, unspecified; I25.10 Atherosclerotic heart disease of native coronary artery without angina pectoris; E11.9 Type 2 diabetes mellitus without complications; K21.9 Gastro-esophageal reflux disease without esophagitis; G47.33 Obstructive sleep apnea (adult) (pediatric); G89.29 Other chronic pain; D72.829 Elevated white blood cell count, unspecified; M25.512 Pain in left shoulder; M25.532 Pain in left wrist; M25.531 Pain in right wrist; M25.571 Pain in right ankle and joints of right foot; M25.572 Pain in left ankle and joints of left foot; M25.561 Pain in right knee; M25.562 Pain in left knee; Z79.82 Long term (current) use of aspirin; Z79.899 Other long term (current) drug therapy; Z98.890 Other specified postprocedural states; Z95.5 Presence of coronary angioplasty implant and graft; Z82.49 Family history of ischemic heart disease and other diseases of the circulatory system; Z71.6 Tobacco abuse counseling; Z79.4 Long term (current) use of insulin; Z20.822 Contact with and (suspected) exposure to COVID-19; Z79.02 Long term (current) use of antithrombotics/antiplatelets; F17.210 Nicotine dependence, cigarettes, uncomplicated
CPT/HCPCS: 36415; 36416; 71045; 80048; 80053; 81001; 83516; 83520; 83605; 84484; 84550; 85025; 85652; 86037; 86038; 86140; 86200; 86225; 86235; 87040; 87389; 93005; 96361; 96365; 96372; 96375; 96376; G0378; J0696; J1650; J1815; J2270; J2272; J3490; J7050; U0003; U0005

== ENCOUNTER 2022-05-29 09:38 | Inpatient (IN) | payer OTHER, MEDICAID ==
[2022-05-29] MEDS ORDERED: Ketorolac Tromethamine 30 MG/ML VIAL ONE (10:23)
[2022-05-29] MEDS ORDERED: HYDROcodone/Acetaminophen 5/325 mg Tablet ONE ×2 (10:23→16:47)
[2022-05-29 10:53] LABS: Hemoglobin 11.9 g/dL (14.0-18.0); Mean Corpuscular HGB CONC 32.7 g/dL (32.0-36.0); Mean Corpuscular Hemoglobin 29.8 pg (27.0-31.0); Mean Corpuscular Volume 90.9 fl (78.0-98.0); Mean Platelet Volume 7.2 fL (7.4-10.4); Platelet Count 757 10x3/uL (130-400); RBC Distribution Width 11.7 % (11.5-14.5); Red Blood Cell (RBC) Count 3.99 mill/uL (4.70-6.10); White Blood Cell (WBC) Count 20.2 10x3/uL (4.8-10.8)
[2022-05-29 11:16] LABS: Eosinophils 1 % (0-10); Lymphocytes 8 % (21-51); MDiff Complete? YES; Monocytes 11 % (0-10); Neutrophil 79 % (42-75); Platelet Morphology Comment Appears Increased; RBC Morphology Normal; Reactive Lymphocytes 1 % (0-10)
[2022-05-29] MEDS ORDERED: Cefepime 2 GM VIAL ONE (11:44)
[2022-05-29] MEDS ORDERED: Bisacodyl 5 MG TAB PO PRN (12:11)
[2022-05-29] MEDS ORDERED: Calcium Carbonate 500 MG ChewTAB PO PRN (12:11)
[2022-05-29] MEDS ORDERED: Acetaminophen 325 MG TAB PO PRN (12:11)
[2022-05-29] MEDS ORDERED: Dextrose 50% Abboject 50 ML SYRINGE SLOW IVP PRN (12:15)
[2022-05-29] MEDS ORDERED: Dextrose 5% in Water 1,000 ML IV PRN (12:15)
[2022-05-29] MEDS ORDERED: Sodium Chloride 0.9% 1,000 ML IV SCH (12:15)
[2022-05-29 12:20] LABS: Acetaminophen Less than 10.0 mcg/mL (10.0-30.0); Alcohol Less than 10 mg/dL (Less than 10); Magnesium 1.8 mg/dL (1.6-2.6); Salicylate Less than 8.0 mg/dL (15.0-30.0)
[2022-05-29 12:47] LABS: Albumin 3.2 g/dL (3.5-5.0)
[2022-05-29 12:48] LABS: Calcium 9.6 mg/dL (7.8-10.44); Chloride 100 mmol/L (98-107); Potassium 3.9 mmol/L (3.5-5.1); Sodium 136 mmol/L (136-145)
[2022-05-29 12:49] LABS: Glucose 209 mg/dL (70-105); Protein, Total 8.2 g/dL (6.0-8.3)
[2022-05-29 12:51] LABS: Anion Gap 18 mmol/L (10-20); Bilirubin, Total 0.8 mg/dL (0.2-1.2); Carbon Dioxide 22 mmol/L (22-29)
[2022-05-29 12:52] LABS: Alkaline Phosphatase 85 U/L (40-110); CRP (Inflammatory) 7.89 mg/dL (= or < 0.5)
[2022-05-29 12:53] LABS: BUN (Urea Nitrogen) 17 mg/dL (8.4-25.7); Calc. Creatinine Clearance 0 mL/min (70-130); Estimated GFR 103
[2022-05-29 12:54] LABS: AST (SGOT) 13 U/L (5-34)
[2022-05-29 12:55] LABS: ALT (SGPT) 11 U/L (8-55); CK (CPK) 49 U/L (30-200); Uric Acid Less than 2.0 mg/dL (3.5-7.2)
[2022-05-29] MEDS ORDERED: Dexamethasone 10 MG/ML VIAL ONE (13:02)
[2022-05-29] MEDS ORDERED: Morphine 2 MG/ML VIAL ONE (13:02)
[2022-05-29] MEDS ORDERED: Vancomycin 1.5 GRAM/300 ML BAG 1.5 GM in Premix Bag 1 BAG IVPB SCH (13:30)
[2022-05-29 13:38] LABS: HIV (1/2) Antibody/Antigen Non-Reactive (NonReactive); HIV 1/2 INDEX 0.15 S/CO (<1.00)
[2022-05-29 14:19] LABS: SARS-CoV-2 NAA Rapid Test Not Detected (NotDetected)
[2022-05-29] MEDS: Sodium Chloride 0.9% 1,000 ML IV SCH (16:30)
[2022-05-29] MEDS: HYDROcodone/Acetaminophen 5/325 mg Tablet PO PRN (16:49)
[2022-05-29] MEDS: Gabapentin 300 MG CAP PO SCH ×2 (18:47→21:19)
[2022-05-29 21:14] VITALS: BMI 25.4
[2022-05-29] MEDS: Famotidine/PF 20 mg/2ml Vial SLOW IVP SCH (21:20)
[2022-05-29] MEDS: Morphine 4 MG/ML VIAL SLOW IVP PRN (21:34)
[2022-05-30] MEDS: HumaLOG 300 UNITS/3 ML VIAL SC PRN ×4 (00:06→18:53)
[2022-05-30] MEDS: Sodium Chloride 0.9% 1,000 ML IV SCH ×3 (00:08→18:58)
[2022-05-30 00:30] LABS: Bilirubin Negative (Negative); Blood, Urine Negative (Negative); Clarity Clear (Clear); Glucose, Urine (Dipstick) Greater than 1000 mg/dL (Negative); Ketone, Urine Negative (Negative); Leukocyte Negative Leu/uL (Negative); Nitrite Negative (Negative); Protein, Urine (Dipstick) Negative (Neg-Trace); Specific Gravity, Urine 1.026 (1.002-1.036); Urobilinogen Normal mg/dL (Less than 2)
[2022-05-30 00:37] LABS: Amphetamine Not Detected (NotDetected); Barbiturates Screen Not Detected (NotDetected); Benzodiazepine Screen Not Detected (NotDetected); Cocaine Metabolite Screen Not Detected (NotDetected); Methadone Not Detected (NotDetected); Methamphetamine Not Detected (NotDetected); Opiate Screen Detected (NotDetected); Oxycodone Screen Not Detected (NotDetected); Phencyclidine (PCP) Not Detected (NotDetected); THC/Cannabinoid Screen Not Detected (NotDetected); Tricyclic Screen Not Detected (NotDetected)
[2022-05-30] MEDS: Morphine 4 MG/ML VIAL SLOW IVP PRN ×3 (03:57→16:48)
[2022-05-30] MEDS ORDERED: Non-Formulary Item 1 EACH (Tizanidine Hcl [Tizanidine Hcl] 4 MG Capsule) PO PRN (07:51)
[2022-05-30] MEDS ORDERED: tiZANidine HCl 4 MG TAB PO PRN (08:09)
[2022-05-30 08:38] LABS: ALT (SGPT) 13 U/L (8-55); AST (SGOT) 11 U/L (5-34); Alkaline Phosphatase 79 U/L (40-110); Anion Gap 11 mmol/L (10-20); BUN (Urea Nitrogen) 15 mg/dL (8.4-25.7); Bilirubin, Total 0.3 mg/dL (0.2-1.2); CK (CPK) 43 U/L (30-200); Calc. Creatinine Clearance 128 mL/min (70-130); Calcium 8.8 mg/dL (7.8-10.44); Carbon Dioxide 25 mmol/L (22-29); Chloride 104 mmol/L (98-107); Estimated GFR 105; Globulin 4.3 g/dL (2.4-3.5); Glucose 235 mg/dL (70-105); Potassium 3.6 mmol/L (3.5-5.1); Protein, Total 7.3 g/dL (6.0-8.3); Sodium 136 mmol/L (136-145)
[2022-05-30 08:40] LABS: #Lymphocytes 2.2 thou/uL (1.20-3.40); #Monocytes 1.1 thou/uL (0.11-0.59); #Neutrophils 8.5 thou/uL (1.40-6.50); %Eosinophils 0.2 % (0.0-10.0); %Lymphocytes 18.3 % (21.0-51.0); %Monocytes 9.5 % (0.0-10.0); %Neutrophils 71.9 % (42.0-75.0); Hemoglobin 9.3 g/dL (14.0-18.0); Mean Corpuscular HGB CONC 32.2 g/dL (32.0-36.0); Mean Corpuscular Hemoglobin 29.7 pg (27.0-31.0); Mean Corpuscular Volume 92.3 fl (78.0-98.0); Mean Platelet Volume 7.1 fL (7.4-10.4); Platelet Count 556 10x3/uL (130-400); RBC Distribution Width 11.8 % (11.5-14.5); Red Blood Cell (RBC) Count 3.13 mill/uL (4.70-6.10); White Blood Cell (WBC) Count 11.9 10x3/uL (4.8-10.8)
[2022-05-30] MEDS: Cefepime 1 GM in Sodium Chloride 0.9% 100 ML IVPB SCH ×2 (08:58→20:48)
[2022-05-30] MEDS: Gabapentin 300 MG CAP PO SCH ×3 (08:59→20:55)
[2022-05-30] MEDS: Valsartan 80 MG TAB PO SCH (09:00)
[2022-05-30] MEDS: Aspirin Chewable 81 MG TAB PO SCH (09:00)
[2022-05-30] MEDS ORDERED: Non-Formulary Item 1 EACH (Insulin Glargine,Hum.Rec.Anlog [Toujeo Solostar] 300 UNIT/ML M SQ SCH (09:00)
[2022-05-30] MEDS: Clopidogrel Bisulfate 75 MG TAB PO SCH (09:00)
[2022-05-30] MEDS ORDERED: Non-Formulary Item 1 EACH (Amlodipine Besylate/Valsartan [Amlodipine-Valsartan 10-320 Mg] PO SCH (09:00)
[2022-05-30] MEDS: Insulin Glargine 30 UNITS/0.3 ML VIAL SC SCH ×2 (09:01→21:30)
[2022-05-30] MEDS: Amlodipine 10 MG TAB PO SCH (09:01)
[2022-05-30] MEDS: Famotidine/PF 20 mg/2ml Vial SLOW IVP SCH ×2 (09:17→20:54)
[2022-05-30] MEDS: VANCOMYCIN 1.75 GM/500 ML BAG 1.75 GM in Premix Bag 1 BAG IVPB SCH ×2 (09:59→22:22)
[2022-05-30] MEDS ORDERED: Potassium Chloride 20 MEQ TAB PO SCH (12:00)
[2022-05-30] MEDS: HYDROcodone/Acetaminophen 10/325 mg Tablet PO PRN ×2 (12:43→18:52)
[2022-05-30 16:51] LABS: GC N.gonorrhoeae PCR,UrineVOID Not Detected (NotDetected)
[2022-05-30 18:49] LABS: Ferritin 1235.57 ng/mL (22-322); T4 4.2 ug/dL (4.87-11.72); Thyroid Stimulating Hormone 1.4692 uIU/mL (0.35-4.94)
[2022-05-30 19:13] LABS: CCP IgG Antibody 2.7 EliAU/mL (<7 Negative); EliA RAS New Method **** NEW METHOD ****; Rheumatoid Factor IgA Antibody 3.3 IU/mL (<14 Negative); Rheumatoid Factor IgM Antibody 0.6 IU/mL (<3.5 Negative)
[2022-05-31] MEDS: Morphine 4 MG/ML VIAL SLOW IVP PRN ×4 (01:25→20:51)
[2022-05-31] MEDS: Sodium Chloride 0.9% 1,000 ML IV SCH ×2 (04:32→14:41)
[2022-05-31 05:48] LABS: ALT (SGPT) 13 U/L (8-55); AST (SGOT) 13 U/L (5-34); Alkaline Phosphatase 69 U/L (40-110); Anion Gap 10 mmol/L (10-20); BUN (Urea Nitrogen) 12 mg/dL (8.4-25.7); Bilirubin, Total 0.2 mg/dL (0.2-1.2); Calc. Creatinine Clearance 157 mL/min (70-130); Calcium 8.7 mg/dL (7.8-10.44); Carbon Dioxide 25 mmol/L (22-29); Chloride 104 mmol/L (98-107); Estimated GFR 112; Globulin 4.3 g/dL (2.4-3.5); Glucose 65 mg/dL (70-105); Potassium 3.3 mmol/L (3.5-5.1); Protein, Total 7.3 g/dL (6.0-8.3); Sodium 136 mmol/L (136-145)
[2022-05-31 06:23] LABS: Band 1 % (5-11); Hemoglobin 8.4 g/dL (14.0-18.0); Lymphocytes 43 % (21-51); MDiff Complete? YES; Mean Corpuscular HGB CONC 32.8 g/dL (32.0-36.0); Mean Corpuscular Hemoglobin 30.3 pg (27.0-31.0); Mean Corpuscular Volume 92.4 fl (78.0-98.0); Mean Platelet Volume 7.2 fL (7.4-10.4); Monocytes 8 % (0-10); Neutrophil 47 % (42-75); Platelet Count 670 10x3/uL (130-400); Platelet Morphology Comment Appears Increased; RBC Distribution Width 11.7 % (11.5-14.5); RBC Morphology Normal; Red Blood Cell (RBC) Count 2.77 mill/uL (4.70-6.10); White Blood Cell (WBC) Count 12.7 10x3/uL (4.8-10.8)
[2022-05-31] MEDS: Cefepime 1 GM in Sodium Chloride 0.9% 100 ML IVPB SCH ×2 (08:55→20:50)
[2022-05-31] MEDS: HYDROcodone/Acetaminophen 10/325 mg Tablet PO PRN ×2 (08:58→16:24)
[2022-05-31] MEDS: Clopidogrel Bisulfate 75 MG TAB PO SCH (09:00)
[2022-05-31] MEDS: Aspirin Chewable 81 MG TAB PO SCH (09:00)
[2022-05-31] MEDS: Valsartan 80 MG TAB PO SCH (09:00)
[2022-05-31] MEDS: Famotidine/PF 20 mg/2ml Vial SLOW IVP SCH ×2 (09:01→20:50)
[2022-05-31] MEDS: Gabapentin 300 MG CAP PO SCH ×3 (09:01→20:50)
[2022-05-31 09:36] LABS: Syphilis Antibody Nonreactive (Nonreactive); Syphilis Antibody Index 0.08 S/CO (<1.00 Non-Reactive)
[2022-05-31] MEDS: Insulin Glargine 30 UNITS/0.3 ML VIAL SC SCH ×2 (09:57→20:52)
[2022-05-31] MEDS: VANCOMYCIN 1.75 GM/500 ML BAG 1.75 GM in Premix Bag 1 BAG IVPB SCH ×2 (09:59→23:33)
[2022-05-31] MEDS: Amlodipine 10 MG TAB PO SCH (10:01)
[2022-05-31] MEDS ORDERED: Potassium Chloride 20 MEQ TAB PO SCH (12:00)
[2022-05-31] MEDS ORDERED: Clotrimazole 1% Cream 15 GM TUBE TOP SCH (21:00)
[2022-05-31 22:34] LABS: Vancomycin, Trough 18.7 ug/mL
[2022-05-31] MEDS: HYDROcodone/Acetaminophen 5/325 mg Tablet PO PRN (23:05)
[2022-06-01] MEDS: HYDROcodone/Acetaminophen 10/325 mg Tablet PO PRN ×2 (03:21→14:59)
[2022-06-01] MEDS: Sodium Chloride 0.9% 1,000 ML IV SCH ×3 (03:25→20:30)
[2022-06-01 04:55] LABS: #Eosinphils 0.1 thou/uL (0.0-0.7); #Lymphocytes 2.5 thou/uL (1.20-3.40); #Monocytes 1.5 thou/uL (0.11-0.59); %Basophils 0.3 % (0.0-1.0); %Eosinophils 0.8 % (0.0-10.0); %Monocytes 12.1 % (0.0-10.0); %Neutrophils 65.9 % (42.0-75.0); Hemoglobin 10.7 g/dL (14.0-18.0); Mean Corpuscular HGB CONC 32.8 g/dL (32.0-36.0); Mean Corpuscular Hemoglobin 29.7 pg (27.0-31.0); Mean Corpuscular Volume 90.4 fl (78.0-98.0); Platelet Count 685 10x3/uL (130-400); RBC Distribution Width 11.9 % (11.5-14.5); Red Blood Cell (RBC) Count 3.59 mill/uL (4.70-6.10); White Blood Cell (WBC) Count 12.1 10x3/uL (4.8-10.8)
[2022-06-01 05:15] LABS: HBSAB Concentration Less than 8.00 mIU/mL; HBSAg Index 0.34 S/CO (0-0.99); Hep B Surf AB Non-Reactive (NonReactive); Hep B Surf Ag Non-Reactive S/CO (NonReactive); Hep C IgG Ab Non-Reactive (NonReactive); Hep C Index 0.12 S/CO (0-0.79)
[2022-06-01 05:27] LABS: ALT (SGPT) 12 U/L (8-55); AST (SGOT) 10 U/L (5-34); Albumin 3.2 g/dL (3.5-5.0); Alkaline Phosphatase 76 U/L (40-110); Anion Gap 14 mmol/L (10-20); BUN (Urea Nitrogen) 9 mg/dL (8.4-25.7); Bilirubin, Total 0.4 mg/dL (0.2-1.2); CRP (Inflammatory) 4.43 mg/dL (= or < 0.5); Calc. Creatinine Clearance 137 mL/min (70-130); Calcium 8.7 mg/dL (7.8-10.44); Carbon Dioxide 24 mmol/L (22-29); Chloride 99 mmol/L (98-107); Estimated GFR 107; Globulin 4.4 g/dL (2.4-3.5); Glucose 199 mg/dL (70-105); Magnesium 1.6 mg/dL (1.6-2.6); Potassium 3.6 mmol/L (3.5-5.1); Protein, Total 7.6 g/dL (6.0-8.3); Sodium 133 mmol/L (136-145)
[2022-06-01] MEDS: Morphine 4 MG/ML VIAL SLOW IVP PRN ×3 (06:10→20:39)
[2022-06-01] MEDS: HumaLOG 300 UNITS/3 ML VIAL SC PRN ×2 (06:12→20:58)
[2022-06-01] MEDS ORDERED: Magnesium 2 GM/50 ML(in water) 2 GM in Premix Bag 1 BAG IVPB SCH (09:30)
[2022-06-01] MEDS ORDERED: Potassium Chloride 20 MEQ TAB PO SCH (09:30)
[2022-06-01] MEDS: VANCOMYCIN 1.75 GM/500 ML BAG 1.75 GM in Premix Bag 1 BAG IVPB SCH ×2 (09:51→20:33)
[2022-06-01] MEDS: Famotidine/PF 20 mg/2ml Vial SLOW IVP SCH ×2 (09:52→20:33)
[2022-06-01] MEDS: Cefepime 1 GM in Sodium Chloride 0.9% 100 ML IVPB SCH (09:52)
[2022-06-01] MEDS: Amlodipine 10 MG TAB PO SCH (09:52)
[2022-06-01] MEDS: Gabapentin 300 MG CAP PO SCH ×3 (09:53→20:33)
[2022-06-01] MEDS: Valsartan 80 MG TAB PO SCH (09:53)
[2022-06-01] MEDS: Clopidogrel Bisulfate 75 MG TAB PO SCH (09:53)
[2022-06-01] MEDS: Aspirin Chewable 81 MG TAB PO SCH (09:53)
[2022-06-01] MEDS: Insulin Glargine 30 UNITS/0.3 ML VIAL SC SCH ×2 (09:54→21:51)
[2022-06-01] MEDS: HYDROcodone/Acetaminophen 5/325 mg Tablet PO PRN (09:56)
[2022-06-01 20:17] LABS: Vancomycin, Trough 16.5 ug/mL
[2022-06-01] MEDS: Cefepime 2 GM in Sodium Chloride 0.9% 100 ML IVPB SCH (20:30)
[2022-06-01] MEDS: Senokot S 8.6-50 MG TAB PO PRN (20:39)
[2022-06-02] MEDS: HYDROcodone/Acetaminophen 10/325 mg Tablet PO PRN ×3 (01:37→19:53)
[2022-06-02] MEDS: Morphine 4 MG/ML VIAL SLOW IVP PRN ×4 (05:54→22:28)
[2022-06-02] MEDS: HumaLOG 300 UNITS/3 ML VIAL SC PRN ×4 (05:55→20:51)
[2022-06-02] MEDS: Sodium Chloride 0.9% 1,000 ML IV SCH (06:10)
[2022-06-02 07:33] LABS: #Eosinphils 0.2 thou/uL (0.0-0.7); #Lymphocytes 2.1 thou/uL (1.20-3.40); #Monocytes 1.8 thou/uL (0.11-0.59); #Neutrophils 9.5 thou/uL (1.40-6.50); %Basophils 0.1 % (0.0-1.0); %Eosinophils 1.2 % (0.0-10.0); %Lymphocytes 15.7 % (21.0-51.0); %Monocytes 13.1 % (0.0-10.0); %Neutrophils 69.8 % (42.0-75.0); Hemoglobin 10.2 g/dL (14.0-18.0); Mean Corpuscular HGB CONC 33.6 g/dL (32.0-36.0); Mean Corpuscular Hemoglobin 30.4 pg (27.0-31.0); Mean Corpuscular Volume 90.5 fl (78.0-98.0); Mean Platelet Volume 6.5 fL (7.4-10.4); Platelet Count 624 10x3/uL (130-400); Red Blood Cell (RBC) Count 3.35 mill/uL (4.70-6.10); White Blood Cell (WBC) Count 13.6 10x3/uL (4.8-10.8)
[2022-06-02 07:58] LABS: ALT (SGPT) 10 U/L (8-55); AST (SGOT) 7 U/L (5-34); Albumin 2.9 g/dL (3.5-5.0); Alkaline Phosphatase 71 U/L (40-110); Anion Gap 10 mmol/L (10-20); BUN (Urea Nitrogen) 8 mg/dL (8.4-25.7); Bilirubin, Total 0.5 mg/dL (0.2-1.2); CRP (Inflammatory) 12.77 mg/dL (= or < 0.5); Calc. Creatinine Clearance 137 mL/min (70-130); Carbon Dioxide 25 mmol/L (22-29); Chloride 100 mmol/L (98-107); Estimated GFR 107; Globulin 4.5 g/dL (2.4-3.5); Glucose 225 mg/dL (70-105); Magnesium 1.9 mg/dL (1.6-2.6); Potassium 3.8 mmol/L (3.5-5.1); Protein, Total 7.4 g/dL (6.0-8.3); Sodium 131 mmol/L (136-145)
[2022-06-02] MEDS: Gabapentin 300 MG CAP PO SCH ×3 (09:12→19:54)
[2022-06-02] MEDS: Aspirin Chewable 81 MG TAB PO SCH (09:13)
[2022-06-02] MEDS: Amlodipine 10 MG TAB PO SCH (09:13)
[2022-06-02] MEDS: Clopidogrel Bisulfate 75 MG TAB PO SCH (09:13)
[2022-06-02] MEDS: Famotidine/PF 20 mg/2ml Vial SLOW IVP SCH ×2 (09:14→19:54)
[2022-06-02] MEDS: Cefepime 2 GM in Sodium Chloride 0.9% 100 ML IVPB SCH (09:15)
[2022-06-02] MEDS: Insulin Glargine 30 UNITS/0.3 ML VIAL SC SCH ×2 (09:17→19:55)
[2022-06-02] MEDS: Valsartan 80 MG TAB PO SCH (09:26)
[2022-06-02] MEDS: methylPREDNISolone Sod Succ/PF 125 MG/2 ML VIAL IVP SCH (11:13)
[2022-06-02] MEDS: VANCOMYCIN 1.75 GM/500 ML BAG 1.75 GM in Premix Bag 1 BAG IVPB SCH (11:13)
[2022-06-02] MEDS: HYDROcodone/Acetaminophen 5/325 mg Tablet PO PRN (15:38)
[2022-06-03] MEDS: Morphine 4 MG/ML VIAL SLOW IVP PRN ×2 (06:11→20:26)
[2022-06-03] MEDS: HumaLOG 300 UNITS/3 ML VIAL SC PRN ×2 (06:11→17:05)
[2022-06-03] MEDS ORDERED: methylPREDNISolone Sod Succ/PF 125 MG/2 ML VIAL IVP SCH (09:00)
[2022-06-03] MEDS: Amlodipine 10 MG TAB PO SCH (09:07)
[2022-06-03] MEDS: Aspirin Chewable 81 MG TAB PO SCH (09:07)
[2022-06-03] MEDS: Gabapentin 300 MG CAP PO SCH ×3 (09:07→20:27)
[2022-06-03] MEDS: Clopidogrel Bisulfate 75 MG TAB PO SCH (09:07)
[2022-06-03] MEDS: Famotidine/PF 20 mg/2ml Vial SLOW IVP SCH ×2 (09:08→21:22)
[2022-06-03] MEDS: Insulin Glargine 30 UNITS/0.3 ML VIAL SC SCH ×2 (09:08→20:26)
[2022-06-03] MEDS: Valsartan 80 MG TAB PO SCH (09:08)
[2022-06-03 10:03] LABS: Hemoglobin 10.3 g/dL (14.0-18.0); Mean Corpuscular HGB CONC 33.3 g/dL (32.0-36.0); Mean Corpuscular Hemoglobin 30.3 pg (27.0-31.0); Mean Corpuscular Volume 90.9 fl (78.0-98.0); Mean Platelet Volume 6.7 fL (7.4-10.4); Platelet Count 638 10x3/uL (130-400); RBC Distribution Width 12.1 % (11.5-14.5); White Blood Cell (WBC) Count 14.5 10x3/uL (4.8-10.8)
[2022-06-03 10:30] LABS: ALT (SGPT) 10 U/L (8-55); AST (SGOT) 7 U/L (5-34); Albumin 3.1 g/dL (3.5-5.0); Alkaline Phosphatase 74 U/L (40-110); Anion Gap 13 mmol/L (10-20); BUN (Urea Nitrogen) 18 mg/dL (8.4-25.7); Bilirubin, Total 0.3 mg/dL (0.2-1.2); Calc. Creatinine Clearance 117 mL/min (70-130); Calcium 9.6 mg/dL (7.8-10.44); Carbon Dioxide 24 mmol/L (22-29); Chloride 100 mmol/L (98-107); Estimated GFR 102; Globulin 4.5 g/dL (2.4-3.5); Glucose 286 mg/dL (70-105); Protein, Total 7.6 g/dL (6.0-8.3); Sodium 133 mmol/L (136-145)
[2022-06-03] MEDS: HYDROcodone/Acetaminophen 10/325 mg Tablet PO PRN (10:37)
[2022-06-03 10:40] LABS: #Lymphocytes 2.5 thou/uL (1.20-3.40); #Monocytes 1.6 thou/uL (0.11-0.59); #Neutrophils 10.3 thou/uL (1.40-6.50); %Basophils 0.2 % (0.0-1.0); %Eosinophils 0.3 % (0.0-10.0); %Lymphocytes 17.4 % (21.0-51.0); %Monocytes 11.3 % (0.0-10.0); %Neutrophils 70.8 % (42.0-75.0); Lymphocytes 15 % (21-51); MDiff Complete? YES; Monocytes 10 % (0-10); Neutrophil 74 % (42-75); Platelet Morphology Comment Appears Increased; Polychromasia SLIGHT = 2-3 cells (100X) (0-2/hpf); Reactive Lymphocytes 1 % (0-10)
[2022-06-03] MEDS: methylPREDNISolone Sod Succ/PF 125 MG/2 ML VIAL IVP SCH (10:41)
[2022-06-03 13:18] LABS: ANA Symphony (Qualitative) Negative (Negative); ANA Symphony (Quantitative) 0.6 Ratio (< 0.7 Negative); dsDNA IgG Antibody 2.5 IU/mL (<10 Negative)
[2022-06-03] MEDS: HumaLOG 300 UNITS/3 ML VIAL SC SCH ×2 (15:16→20:27)
[2022-06-03] MEDS: HYDROcodone/Acetaminophen 5/325 mg Tablet PO PRN (15:21)
[2022-06-04] MEDS: HYDROcodone/Acetaminophen 10/325 mg Tablet PO PRN (05:48)
[2022-06-04] MEDS: HumaLOG 300 UNITS/3 ML VIAL SC PRN (05:50)
[2022-06-04] MEDS: Famotidine/PF 20 mg/2ml Vial SLOW IVP SCH ×2 (09:11→20:19)
[2022-06-04] MEDS: Clopidogrel Bisulfate 75 MG TAB PO SCH (09:11)
[2022-06-04] MEDS: Aspirin Chewable 81 MG TAB PO SCH (09:11)
[2022-06-04] MEDS: Amlodipine 10 MG TAB PO SCH (09:11)
[2022-06-04] MEDS: Insulin Glargine 30 UNITS/0.3 ML VIAL SC SCH ×2 (09:12→20:07)
[2022-06-04] MEDS: HumaLOG 300 UNITS/3 ML VIAL SC SCH ×3 (09:12→20:25)
[2022-06-04] MEDS: Valsartan 80 MG TAB PO SCH (09:12)
[2022-06-04] MEDS: Gabapentin 300 MG CAP PO SCH ×3 (09:12→20:16)
[2022-06-04] MEDS: Morphine 4 MG/ML VIAL SLOW IVP PRN ×2 (09:28→20:06)
[2022-06-04] MEDS: methylPREDNISolone Sod Succ/PF 125 MG/2 ML VIAL IVP SCH (11:51)
[2022-06-04 14:15] LABS: IgG Subclass 1 1282 mg/dL (248-810); IgG Subclass 2 393 mg/dL (130-555); IgG Subclass 3 174 mg/dL (15-102)
[2022-06-04 14:15] LABS: Albumin-Ur 46.5 % (.); Alpha 1 - Ur 9.1 % (.); Alpha 2 - Ur 13.3 % (.); M-Spike,% Not Observed % (Not Observed); Protein, Urine 8.1 mg/dL (Not Estab.)
[2022-06-05] MEDS: HYDROcodone/Acetaminophen 10/325 mg Tablet PO PRN (00:32)
[2022-06-05] MEDS: Valsartan 80 MG TAB PO SCH (09:50)
[2022-06-05] MEDS: Insulin Glargine 30 UNITS/0.3 ML VIAL SC SCH (09:50)
[2022-06-05] MEDS: Aspirin Chewable 81 MG TAB PO SCH (09:51)
[2022-06-05] MEDS: Amlodipine 10 MG TAB PO SCH (09:51)
[2022-06-05] MEDS: Gabapentin 300 MG CAP PO SCH (09:51)
[2022-06-05] MEDS: HumaLOG 300 UNITS/3 ML VIAL SC SCH (09:52)
[2022-06-05] MEDS: Famotidine/PF 20 mg/2ml Vial SLOW IVP SCH (09:52)
[2022-06-05] MEDS: Clopidogrel Bisulfate 75 MG TAB PO SCH (09:52)
[2022-06-05] MEDS: Morphine 4 MG/ML VIAL SLOW IVP PRN (09:53)
[2022-06-05] MEDS: Senokot S 8.6-50 MG TAB PO PRN (10:00)
[2022-06-05] MEDS: methylPREDNISolone Sod Succ/PF 125 MG/2 ML VIAL IVP SCH (10:00)
[2022-06-05] MEDS: HYDROcodone/Acetaminophen 5/325 mg Tablet PO PRN (12:08)
[2022-06-05 14:49] VITALS: BP 145/78; TEMP 98
== END 2022-06-05 14:30 | disposition home or self-care (01) | DRG 554 ==
LOC: ERS 09:38 → 2NO 18:05 → T4-A 06-01 14:04
PROVIDERS: ADMIT Family Medicine; ATTEND Internal Medicine
DX: M13.0 Polyarthritis, unspecified (principal); E87.20 Acidosis, unspecified; I10 Essential (primary) hypertension; E11.9 Type 2 diabetes mellitus without complications; I25.10 Atherosclerotic heart disease of native coronary artery without angina pectoris; J44.9 Chronic obstructive pulmonary disease, unspecified; K21.9 Gastro-esophageal reflux disease without esophagitis; M10.9 Gout, unspecified; M48.00 Spinal stenosis, site unspecified; F17.210 Nicotine dependence, cigarettes, uncomplicated; G47.30 Sleep apnea, unspecified; E78.00 Pure hypercholesterolemia, unspecified; Z20.822 Contact with and (suspected) exposure to COVID-19; Z98.890 Other specified postprocedural states; Z82.49 Family history of ischemic heart disease and other diseases of the circulatory system; Z83.3 Family history of diabetes mellitus; Z95.5 Presence of coronary angioplasty implant and graft; Z79.82 Long term (current) use of aspirin; Z79.899 Other long term (current) drug therapy; Z79.4 Long term (current) use of insulin; G89.29 Other chronic pain; M54.9 Dorsalgia, unspecified; Z87.442 Personal history of urinary calculi; Z79.01 Long term (current) use of anticoagulants
CPT/HCPCS: 36415; 36416; 71045; 80053; 80202; 80306; 80307; 82085; 82533; 82550; 82728; 82787; 83520; 83605; 83615; 83735; 83880; 84145; 84156; 84166; 84436; 84443; 84484; 84550; 85025; 85652; 86038; 86140; 86200; 86225; 86706; 86780; 86803; 87040; 87086; 87340; 87389; 87591; 93005; 93306; 96365; 96366; 96375; J0692; J1100; J1650; J1815; J1885; J2270; J2272; J2930; J3370; J3475; J3490; J7050; S0028

== ENCOUNTER 2022-09-20 12:49 | Emergency (ER) | payer OTHER, MEDICAID ==
[2022-09-20] MEDS ORDERED: Ketorolac Tromethamine 30 MG/ML VIAL ONE (13:34)
== END 2022-09-20 13:49 | disposition home or self-care (01) ==
LOC: ERS 12:49
DX: M19.90 Unspecified osteoarthritis, unspecified site (principal); M19.042 Primary osteoarthritis, left hand; M19.041 Primary osteoarthritis, right hand; M19.012 Primary osteoarthritis, left shoulder; M19.011 Primary osteoarthritis, right shoulder; I25.10 Atherosclerotic heart disease of native coronary artery without angina pectoris; E11.9 Type 2 diabetes mellitus without complications; E78.00 Pure hypercholesterolemia, unspecified; I10 Essential (primary) hypertension; F17.210 Nicotine dependence, cigarettes, uncomplicated
CPT/HCPCS: 96372; 99283; J1885

== ENCOUNTER 2022-10-14 18:15 | Observation (INO) | payer OTHER, MEDICAID ==
[2022-10-14 19:23] LABS: #Monocytes 1.4 thou/uL (0.11-0.59); #Neutrophils 12.7 thou/uL (1.40-6.50); %Basophils 0.2 % (0.0-1.0); %Eosinophils 0.2 % (0.0-10.0); %Lymphocytes 15.5 % (21.0-51.0); %Monocytes 8.2 % (0.0-10.0); %Neutrophils 75.1 % (42.0-75.0); Hemoglobin 13.3 g/dL (14.0-18.0); Mean Corpuscular HGB CONC 34.5 g/dL (32.0-36.0); Mean Corpuscular Hemoglobin 29.9 pg (27.0-31.0); Mean Corpuscular Volume 86.5 fl (78.0-98.0); Mean Platelet Volume 9.4 fL (7.4-10.4); Platelet Count 361 10x3/uL (130-400); RBC Distribution Width 12.7 % (11.5-14.5); Red Blood Cell (RBC) Count 4.45 mill/uL (4.70-6.10); White Blood Cell (WBC) Count 16.9 10x3/uL (4.8-10.8)
[2022-10-14 19:48] LABS: ALT (SGPT) 13 U/L (8-55); AST (SGOT) 12 U/L (5-34); Albumin 4.1 g/dL (3.5-5.0); Alkaline Phosphatase 113 U/L (40-110); Anion Gap 16 mmol/L (10-20); BUN (Urea Nitrogen) 15 mg/dL (8.4-25.7); Calc. Creatinine Clearance 0 mL/min (70-130); Calcium 9.9 mg/dL (7.8-10.44); Carbon Dioxide 23 mmol/L (22-29); Chloride 99 mmol/L (98-107); Estimated GFR 84; Glucose 212 mg/dL (70-105); Potassium 3.4 mmol/L (3.5-5.1); Protein, Total 8.1 g/dL (6.0-8.3); Sodium 135 mmol/L (136-145)
[2022-10-14] MEDS ORDERED: diphenhydrAMINE 50 MG/ML VIAL ONE (20:31)
[2022-10-14] MEDS ORDERED: Metoclopramide HCl 10 MG/2 ML VIAL ONE (20:31)
[2022-10-14] MEDS ORDERED: Famotidine/PF 20 mg/2ml Vial ONE (22:03)
[2022-10-14 23:51] LABS: Lactic Acid 1.2 mmol/L (0.5-2.2)
[2022-10-15] LABS: Troponin I 0.035 ng/mL (< 0.028)
[2022-10-15] MEDS ORDERED: Dextrose 50% Abboject 50 ML SYRINGE SLOW IVP PRN (00:18)
[2022-10-15] MEDS ORDERED: Glucagon 1 MG/ML KIT IM PRN (00:18)
[2022-10-15] MEDS ORDERED: Dextrose 5% in Water 1,000 ML IV PRN (00:18)
[2022-10-15] MEDS ORDERED: HumaLOG 300 UNITS/3 ML VIAL SC PRN ×3 (00:21→00:33)
[2022-10-15] MEDS ORDERED: Pantoprazole 40 MG VIAL IVP SCH ×2 (00:30→21:00)
[2022-10-15 00:58] LABS: Magnesium 1.7 mg/dL (1.6-2.6)
[2022-10-15 02:36] VITALS: BMI 24.4
[2022-10-15 02:42] LABS: Bacteria/HPF None Seen HPF (None Seen); Bilirubin Negative (Negative); Blood, Urine Negative (Negative); CAUTI Indications for Culture Dysuria,urgency,freq; Clarity Clear (Clear); Glucose, Urine (Dipstick) Normal (Negative); Ketone, Urine 20 mg/dL (Negative); Leukocyte Negative Leu/uL (Negative); Nitrite Negative (Negative); Protein, Urine (Dipstick) 10 mg/dL (Neg-Trace); RBC/HPF 0-3 HPF (0-3); Squamous Epithelial None Seen HPF (0-3); Urobilinogen 3 mg/dL (Less than 2); WBC/HPF 0-3 HPF (0-3); pH, Urine 6.5 (5.0-9.0)
[2022-10-15] MEDS: Potassium Chloride 20 MEQ in Premix Bag 1 BAG IVPB SCH ×2 (02:59→05:27)
[2022-10-15] MEDS: Lactated Ringer's 1,000 ML IV SCH ×2 (02:59→11:11)
[2022-10-15] MEDS ORDERED: Magnesium 2 GM/50 ML(in water) 2 GM in Premix Bag 1 BAG IVPB SCH (03:00)
[2022-10-15 03:11] LABS: Urine Culture Reflex No No
[2022-10-15] MEDS ORDERED: Ibuprofen 800 MG TAB PO PRN (04:04)
[2022-10-15] MEDS ORDERED: Mometasone 200 MCG/Formoterol 5 MCG 120 PUFF INHALER INH PRN (04:11)
[2022-10-15] MEDS ORDERED: Ipratropium/Albuterol 3 ML NEB NEB PRN (04:16)
[2022-10-15] MEDS ORDERED: Alirocumab [Praluent Pen] 150 MG/ML Pen.Injctr SC SCH (04:30)
[2022-10-15 05:02] LABS: #Basophils 0.1 thou/uL (0.0-0.2); #Eosinphils 0.1 thou/uL (0.0-0.7); #Monocytes 1.8 thou/uL (0.11-0.59); #Neutrophils 10.5 thou/uL (1.40-6.50); %Basophils 0.3 % (0.0-1.0); %Eosinophils 0.5 % (0.0-10.0); %Lymphocytes 23.7 % (21.0-51.0); %Monocytes 10.9 % (0.0-10.0); %Neutrophils 63.9 % (42.0-75.0); Mean Corpuscular HGB CONC 34.7 g/dL (32.0-36.0); Mean Corpuscular Hemoglobin 29.3 pg (27.0-31.0); Mean Corpuscular Volume 84.4 fl (78.0-98.0); Mean Platelet Volume 9.5 fL (7.4-10.4); Platelet Count 332 10x3/uL (130-400); RBC Distribution Width 12.8 % (11.5-14.5); White Blood Cell (WBC) Count 16.4 10x3/uL (4.8-10.8)
[2022-10-15] MEDS: Cyclobenzaprine 10 MG TAB PO PRN ×2 (05:25→14:26)
[2022-10-15] MEDS: HYDROcodone/Acetaminophen 10/325 mg Tablet PO PRN ×2 (05:25→14:26)
[2022-10-15 05:29] LABS: ALT (SGPT) 11 U/L (8-55); AST (SGOT) 12 U/L (5-34); Albumin 3.7 g/dL (3.5-5.0); Alkaline Phosphatase 107 U/L (40-110); Anion Gap 14 mmol/L (10-20); BUN (Urea Nitrogen) 11 mg/dL (8.4-25.7); Bilirubin, Total 0.8 mg/dL (0.2-1.2); Calc. Creatinine Clearance 110 mL/min (70-130); Carbon Dioxide 23 mmol/L (22-29); Chloride 104 mmol/L (98-107); Estimated GFR 102; Globulin 3.6 g/dL (2.4-3.5); Glucose 184 mg/dL (70-105); Magnesium 2.3 mg/dL (1.6-2.6); Potassium 3.4 mmol/L (3.5-5.1); Protein, Total 7.3 g/dL (6.0-8.3); Sodium 138 mmol/L (136-145)
[2022-10-15 05:33] LABS: Troponin I 0.016 ng/mL (< 0.028)
[2022-10-15 07:04] LABS: Creatinine, Urine 74.11 mg/dL (63-166)
[2022-10-15] MEDS ORDERED: Non-Formulary Item 1 EACH (Insulin Lispro [Insulin Lispro Kwikpen U-100] 100 UNIT/ML Insu SQ SCH (08:00)
[2022-10-15] MEDS ORDERED: Non-Formulary Item 1 EACH (Insulin Glargine,Hum.Rec.Anlog [Toujeo Solostar] 300 UNIT/ML I SQ SCH (09:00)
[2022-10-15] MEDS ORDERED: Amlodipine 10 MG TAB PO SCH (09:00)
[2022-10-15] MEDS ORDERED: Clopidogrel Bisulfate 75 MG TAB PO SCH (09:00)
[2022-10-15] MEDS ORDERED: Nicotine 7 MG PATCH TD SCH (09:00)
[2022-10-15] MEDS ORDERED: Aspirin Chewable 81 MG TAB PO SCH (09:00)
[2022-10-15] MEDS ORDERED: Gabapentin 300 MG CAP PO SCH (09:00)
[2022-10-15] MEDS ORDERED: Valsartan 80 MG TAB PO SCH (09:00)
[2022-10-15] MEDS ORDERED: Insulin Glargine 30 UNITS/0.3 ML VIAL SC SCH (09:00)
[2022-10-15] MEDS ORDERED: Potassium Chloride 20 MEQ TAB PO SCH (09:15)
[2022-10-15 13:28] VITALS: BP 145/86; TEMP 98.2
== END 2022-10-15 16:59 | disposition home or self-care (01) ==
LOC: ERS 18:15 → 2SW 10-15 02:18
PROVIDERS: ADMIT Student in an Organized Health Care Education/Training Program; ATTEND Student in an Organized Health Care Education/Training Program
DX: R07.89 Other chest pain (principal); K21.9 Gastro-esophageal reflux disease without esophagitis; D72.829 Elevated white blood cell count, unspecified; I10 Essential (primary) hypertension; E11.9 Type 2 diabetes mellitus without complications; E78.5 Hyperlipidemia, unspecified; I25.10 Atherosclerotic heart disease of native coronary artery without angina pectoris; M10.9 Gout, unspecified; F17.210 Nicotine dependence, cigarettes, uncomplicated; M13.0 Polyarthritis, unspecified; I73.9 Peripheral vascular disease, unspecified; J44.9 Chronic obstructive pulmonary disease, unspecified; Z79.4 Long term (current) use of insulin; Z79.82 Long term (current) use of aspirin; Z79.02 Long term (current) use of antithrombotics/antiplatelets; Z79.899 Other long term (current) drug therapy
CPT/HCPCS: 36415; 36416; 71045; 80053; 81001; 82570; 83605; 83735; 84300; 84484; 85025; 87040; 93005; 96365; 96366; 96372; 96375; 96376; C9113; G0378; J1200; J1650; J1815; J2765; J3475; J3480; J7120; S0028

== ENCOUNTER 2024-01-07 09:55 | Emergency (ER) | payer OTHER ==
[2024-01-07] MEDS ORDERED: Ketorolac Tromethamine 30 MG (1 mL) VIAL ONE (11:12)
[2024-01-07] MEDS ORDERED: HYDROcodone/Acetaminophen 5/325 mg Tablet ONE (11:13)
== END 2024-01-07 11:34 | disposition home or self-care (01) ==
LOC: ERS 09:55
DX: B37.0 Candidal stomatitis (principal); K13.0 Diseases of lips; F17.210 Nicotine dependence, cigarettes, uncomplicated; I25.10 Atherosclerotic heart disease of native coronary artery without angina pectoris; I10 Essential (primary) hypertension; E11.9 Type 2 diabetes mellitus without complications; Z95.5 Presence of coronary angioplasty implant and graft
CPT/HCPCS: 96372; 99282; J1885

== ENCOUNTER 2024-01-08 13:18 | Emergency (ER) | payer OTHER ==
[2024-01-08 14:11] LABS: Hematocrit 29.4 % (42.0-52.0); Hemoglobin 10.1 g/dL (14.0-18.0); Mean Corpuscular HGB CONC 34.4 g/dL (32.0-36.0); Mean Platelet Volume 8.5 fL (7.4-10.4); Platelet Count 212 10x3/uL (130-400); RBC Distribution Width 14.9 % (11.5-14.5); Red Blood Cell (RBC) Count 2.97 mill/uL (4.70-6.10)
[2024-01-08 14:30] LABS: ALT (SGPT) 126 U/L (8-55); AST (SGOT) 45 U/L (5-34); Albumin 3.6 g/dL (3.5-5.0); Alkaline Phosphatase 74 U/L (40-110); Anion Gap 11 mmol/L (10-20); BUN (Urea Nitrogen) 16 mg/dL (8.4-25.7); Bilirubin, Total 0.6 mg/dL (0.2-1.2); Calc. Creatinine Clearance 0 mL/min (70-130); Calcium 8.8 mg/dL (7.8-10.44); Carbon Dioxide 26 mmol/L (22-29); Chloride 108 mmol/L (98-107); Estimated GFR 100; Glucose 125 mg/dL (70-105); Potassium 3.9 mmol/L (3.5-5.1); Protein, Total 6.6 g/dL (6.0-8.3); Sodium 141 mmol/L (136-145)
[2024-01-08 14:34] LABS: Band 1 % (5-11); Eosinophils 3 % (0-10); Lymphocytes 29 % (21-51); Neutrophil 66 % (42-75); Nucleated RBC (Manual Ct) 1 % (0); Platelet Adequacy Comment Platelets Normal; Polychromasia SLIGHT = 2-3 cells HPF (0-2)
== END 2024-01-08 15:39 | disposition home or self-care (01) ==
LOC: ERS 13:18
DX: S90.421A Blister (nonthermal), right great toe, initial encounter (principal); D72.819 Decreased white blood cell count, unspecified; D64.9 Anemia, unspecified; K12.30 Oral mucositis (ulcerative), unspecified; F17.210 Nicotine dependence, cigarettes, uncomplicated; I25.10 Atherosclerotic heart disease of native coronary artery without angina pectoris; E11.9 Type 2 diabetes mellitus without complications; Z55.6 Problems related to health literacy
CPT/HCPCS: 36415; 80053; 85025; 93005